=== PATIENT | female | born 1995 | race Caucasian/White ===

== ENCOUNTER 2017-04-01 17:32 | Emergency (ER) | payer SELFPAY ==
[~2017-04-01] VITALS: Wt 90.7 kg
[~2017-04-01 17:32] MED LIST: BUSPIRONE HCL7.5 MG PO; CLEOCIN HCL150 MG PO; CYCLOBENZAPRINE10 MG PO; DEPO PROVER150 MG/M1; DULOXETINE HCL30 MG PO; IBU800 MG PO; KEFLEX500 MG PO; LYRICA25 M1 PO; MOTRIN600 MG PO; MOTRIN800 MG PO; MULTIPLE VITAMI1 CAP; NAPROSYN500 MG PO; OMEPRAZOLE40 MG PO; ROXICET ORAL SOL5 ML PO; VICODIN 5-3001 EACH PO; ZITHROMAX Z PA250 MG PO
[2017-04-01] MEDS ORDERED: LIDEX 0.05% CRE15 GM T (17:40)
== END 2017-04-01 17:42 | disposition home or self-care (01) ==
LOC: ED 17:32
DX: T63.441A Toxic effect of venom of bees, accidental (unintentional), initial encounter (principal); R03.0 Elevated blood-pressure reading, without diagnosis of hypertension; Z88.0 Allergy status to penicillin; Y92.9 Unspecified place or not applicable

== ENCOUNTER 2017-04-03 21:59 | Emergency (ER) | payer OTHER ==
[~2017-04-03] VITALS: Ht 165.1 cm; Wt 90.7 kg
[~2017-04-03 21:59] MED LIST changes: +LIDEX 0.05% CRE15 GM T
== END 2017-04-03 23:36 | disposition home or self-care (01) ==
LOC: ED 21:59
DX: M54.6 Pain in thoracic spine (principal); M43.6 Torticollis; Z88.0 Allergy status to penicillin; V89.2XXA Person injured in unspecified motor-vehicle accident, traffic, initial encounter; Y93.89 Activity, other specified; Y92.413 State road as the place of occurrence of the external cause; Y99.9 Unspecified external cause status

== ENCOUNTER 2021-06-23 19:43 | Emergency (ER) | payer OTHER ==
[~2021-06-23] VITALS: Ht 165.1 cm; Wt 77.1 kg
[2021-06-23 20:31] LABS: BASO % 0.4 % (0.0-1.0); EOS # 0.2 10*3/uL (0.0-0.4); EOS % 2.4 % (1.0-4.0); HEMATOCRIT 39.5 % (37.0-47.0); LYMPH # 2.3 10*3/uL (1.3-4.4); LYMPH % 28.6 % (27.0-41.0); MEAN CELL VOLUME 89.2 fl (81.0-99.0); MEAN CORPUSCULAR HGB 29.8 pg (27.0-31.0); MEAN CORPUSCULAR HGB CONC 33.4 g/dl (33.0-37.0); MEAN PLATELET VOLUME 11.4 fl (9.6-12.3); MONO # 0.6 10*3/uL (0.1-1.0); MONO % 7.4 % (3.0-9.0); NEUT # 4.8 10*3/uL (2.3-7.9); NEUT % 61.1 % (47.0-73.0); PLATELET COUNT AUTOMATED 202 10*3/uL (130-400); RED BLOOD COUNT 4.43 10*6/uL (4.10-5.10); RED CELL DISTRI WIDTH 11.8 % (0-14.5); WHITE BLOOD COUNT 7.9 10*3/uL (4.8-10.8)
[2021-06-23 20:43] LABS: BUN 14 mg/dl (7-24); CHLORIDE 109 mmol/L (98-107); CREATININE 0.78 mg/dL (0.55-1.02); POTASSIUM 3.7 mmol/L (3.5-5.1); SODIUM 142 mmol/L (136-145)
[2021-06-23] MEDS ORDERED: METHOCARBAMOL750 M1 PO (22:25)
[2021-06-23] MEDS ORDERED: NAPROXEN250 MG PO (22:25)
== END 2021-06-23 23:48 | disposition home or self-care (01) ==
LOC: ED 19:43
PROVIDERS: Internal Medicine
DX: M51.26 Other intervertebral disc displacement, lumbar region (principal); Z88.0 Allergy status to penicillin

== ENCOUNTER 2021-06-24 20:46 | Emergency (ER) | payer OTHER ==
[~2021-06-24] VITALS: Ht 165.1 cm; Wt 77.1 kg
[~2021-06-24 20:46] MED LIST changes: +METHOCARBAMOL750 M1 PO; +NAPROXEN250 MG PO
== END 2021-06-25 00:22 | disposition home or self-care (01) ==
LOC: ED 20:46
DX: M51.26 Other intervertebral disc displacement, lumbar region (principal); Z88.0 Allergy status to penicillin

== ENCOUNTER 2021-09-02 20:19 | Emergency (ER) | payer OTHER ==
[~2021-09-02] VITALS: Ht 165.1 cm; Wt 72.6 kg
[2021-09-02 22:20] LABS: BASO % 0.3 % (0.0-1.0); EOS # 0.1 10*3/uL (0.0-0.4); EOS % 0.8 % (1.0-4.0); HEMATOCRIT 36.7 % (37.0-47.0); LYMPH # 1.5 10*3/uL (1.3-4.4); LYMPH % 19.6 % (27.0-41.0); MEAN CELL VOLUME 86.6 fl (81.0-99.0); MEAN CORPUSCULAR HGB 29.7 pg (27.0-31.0); MEAN CORPUSCULAR HGB CONC 34.3 g/dl (33.0-37.0); MEAN PLATELET VOLUME 11.3 fl (9.6-12.3); MONO # 0.8 10*3/uL (0.1-1.0); MONO % 10.8 % (3.0-9.0); NEUT # 5.3 10*3/uL (2.3-7.9); NEUT % 68.2 % (47.0-73.0); PLATELET COUNT AUTOMATED 185 10*3/uL (130-400); RED BLOOD COUNT 4.24 10*6/uL (4.10-5.10); RED CELL DISTRI WIDTH 11.5 % (0-14.5); WHITE BLOOD COUNT 7.8 10*3/uL (4.8-10.8)
[2021-09-02 22:36] LABS: ALBUMIN 3.3 gm/dl (3.1-4.5); ALKALINE PHOSPHATASE 81 U/L (45-117); BUN 12 mg/dl (7-24); CHLORIDE 107 mmol/L (98-107); CREATININE 0.61 mg/dL (0.55-1.02); POTASSIUM 3.6 mmol/L (3.5-5.1); SGOT/AST 25 IU/L (3-35); SGPT/ALT 41 U/L (12-78); SODIUM 139 mmol/L (136-145); TOTAL PROTEIN 7.4 gm/dL (6.4-8.2)
[2021-09-02] MEDS ORDERED: ZITHROMAX250 MG PO (23:25)
[2021-09-02] MEDS ORDERED: ZOFRAN4 MG PO (23:25)
[2021-09-02] MEDS ORDERED: PREDNISONE20 M1 PO (23:25)
== END 2021-09-02 23:31 | disposition home or self-care (01) ==
LOC: ED 20:19
PROVIDERS: Internal Medicine
DX: B34.9 Viral infection, unspecified (principal); Z20.822 Contact with and (suspected) exposure to COVID-19; R79.82 Elevated C-reactive protein (CRP)

== ENCOUNTER 2022-06-04 14:04 | Emergency (ER) | payer OTHER ==
[~2022-06-04] VITALS: Wt 68.0 kg
[~2022-06-04 14:04] MED LIST changes: +PREDNISONE20 M1 PO; +ZITHROMAX250 MG PO; +ZOFRAN4 MG PO
== END 2022-06-04 15:51 | disposition home or self-care (01) ==
LOC: ED 14:04
DX: G43.909 Migraine, unspecified, not intractable, without status migrainosus (principal); Z20.822 Contact with and (suspected) exposure to COVID-19; Z88.0 Allergy status to penicillin; Z90.89 Acquired absence of other organs

== ENCOUNTER 2023-01-03 12:07 | Emergency (ER) | payer SELFPAY ==
[~2023-01-03] VITALS: Ht 165.1 cm; Wt 68.0 kg
[2023-01-03] MEDS ORDERED: MEDROL DOSEPAK4 MG PO (13:38)
[2023-01-03] MEDS ORDERED: CYCLOBENZAPRINE10 MG PO (13:38)
== END 2023-01-03 13:49 | disposition home or self-care (01) ==
LOC: ED 12:07
DX: M54.16 Radiculopathy, lumbar region (principal); M79.651 Pain in right thigh; D18.09 Hemangioma of other sites; G43.909 Migraine, unspecified, not intractable, without status migrainosus; M79.7 Fibromyalgia; Z88.0 Allergy status to penicillin; Z90.89 Acquired absence of other organs; Z98.51 Tubal ligation status

== ENCOUNTER → 2023-11-22 | Outpatient (CLI) | payer OTHER ==
[~2023-11-22] MED LIST changes: +MEDROL DOSEPAK4 MG PO
== END | disposition home or self-care (01) ==
LOC: MRI 03:47
PROVIDERS: ATTEND Family Medicine
DX: M51.37 Other intervertebral disc degeneration, lumbosacral region (principal); M48.07 Spinal stenosis, lumbosacral region; M47.817 Spondylosis without myelopathy or radiculopathy, lumbosacral region

== ENCOUNTER 2024-06-27 16:59 | Emergency (ER) | payer OTHER ==
[~2024-06-27] VITALS: Ht 165.1 cm; Wt 68.0 kg
[2024-06-27] MEDS ORDERED: BROMFED DM COU118 M2 PO (17:56)
== END 2024-06-27 17:50 | disposition home or self-care (01) ==
LOC: ED 16:59
DX: J06.9 Acute upper respiratory infection, unspecified (principal); G43.909 Migraine, unspecified, not intractable, without status migrainosus; M79.7 Fibromyalgia; Z88.0 Allergy status to penicillin; Z90.89 Acquired absence of other organs; Z98.51 Tubal ligation status

== ENCOUNTER 2025-06-06 21:52 | Emergency (ER) | payer OTHER ==
[~2025-06-06] VITALS: Ht 165.1 cm; Wt 77.1 kg
[~2025-06-06 21:52] MED LIST changes: +BROMFED DM COU118 M2 PO
[2025-06-06] MEDS ORDERED: BENZOCAINE 20% 11.9 GM GEL T STA (23:25)
== END 2025-06-06 23:47 | disposition home or self-care (01) ==
LOC: ED 21:52
DX: M27.69 Other endosseous dental implant failure (principal); M27.3 Alveolitis of jaws; G43.909 Migraine, unspecified, not intractable, without status migrainosus; Z79.899 Other long term (current) drug therapy; Z88.0 Allergy status to penicillin; Z98.890 Other specified postprocedural states